=== PATIENT | female | born 1955 | race Caucasian/White ===

== ENCOUNTER 2022-03-30 06:45 | Day surgery (SDC) | payer BC ==
[~2022-03-30 06:45] MED LIST: Lactated Ringers 1,000 ML IV SCH; Sodium Chloride 0.9% 10 ML Syringe FLUSH PRN; Sodium Chloride 0.9% 2.5 ML Syringe FLUSH PRN; Sodium Chloride 0.9% 20 ML SDV IV PRN
[2022-03-30] MEDS ORDERED: Lidocaine 2% 5 ML SDV ONE (07:09)
[2022-03-30] MEDS ORDERED: Propofol 200 MG/20 ML SDV ONE (07:09)
[2022-03-30] MEDS ORDERED: ePHEDrine 50 MG/ML SDV ONE (07:11)
[2022-03-30] MEDS ORDERED: Phenylephrine HCl In 0.9% NaCl 1 MG/10 ML Vial ONE (07:11)
[2022-03-30] MEDS ORDERED: Glycopyrrolate 0.2 MG/ML SDV ONE (08:07)
== END 2022-03-30 09:20 | disposition home or self-care (01) ==
LOC: MW.SDS 06:45
PROVIDERS: ATTEND Surgery
DX: Z12.11 Encounter for screening for malignant neoplasm of colon (principal); K62.1 Rectal polyp; I10 Essential (primary) hypertension; E03.9 Hypothyroidism, unspecified; E66.9 Obesity, unspecified; M85.80 Other specified disorders of bone density and structure, unspecified site; Z80.0 Family history of malignant neoplasm of digestive organs; Z88.0 Allergy status to penicillin; Z68.33 Body mass index [BMI] 33.0-33.9, adult; Z79.899 Other long term (current) drug therapy; Z79.890 Hormone replacement therapy; Z98.890 Other specified postprocedural states
CPT/HCPCS: 45380; J2704; J3490; J7120; 00812